=== PATIENT | male | born 1970 | race Caucasian/White ===

== ENCOUNTER → 2025-01-19 08:18 | Outpatient (REF) | payer BC, SELFPAY | LOC: PAVMRI 08:18 | PROVIDERS: ATTENDING PHYSICIAN Internal Medicine Cardiovascular Disease | DX: I42.8 Other cardiomyopathies (principal); I50.22 Chronic systolic (congestive) heart failure; I47.20 Ventricular tachycardia, unspecified; I63.9 Cerebral infarction, unspecified; I10 Essential (primary) hypertension; Z68.30 Body mass index [BMI] 30.0-30.9, adult | CPT/HCPCS: 75561; 75565; A9585 ==